=== PATIENT | male | born 1960 | race Caucasian/White ===

== ENCOUNTER 2019-07-22 23:33 | Emergency (ER) | payer OTHER ==
[~2019-07-22] VITALS: Ht 190.5 cm; Wt 97.5 kg
[2019-07-22 23:45] VITALS: BP_SYST 141
--- NOTE | 2019-07-22 23:45 | NUR ---
Patient to ER bed 4 to gown for evaluation. Side rails up. Report given to ANA LAURA LOPEZ.
--- NOTE | 2019-07-22 23:45 | NUR ---
ASSUMED CARE OF PT. REPORT RECIEVED.
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
--- NOTE | 2019-07-23 00:15 | NUR ---
ER Dr. THOMPSON at bedside examining patient.
--- NOTE | 2019-07-23 01:00 | NUR ---
XRAYS COMPLETE, AWAITING RESULTS.
--- NOTE | 2019-07-23 02:40 | NUR ---
PT AWAITING DISPOSITION. PT IS RESTING QUIETLY IN NO DISTRESS.
--- NOTE | 2019-07-23 03:15 | NUR ---
SLING APPLIED TO LEFT EXTREMITY TO STABILIZE.
[2019-07-23 03:20] VITALS: BP_SYST 136
--- NOTE | 2019-07-23 03:20 | NUR ---
Patient given written and verbal discharge instructions and verbalizes understanding. DR. JAY REED MD discussed with patient the results and treatment provided. Patient in stable condition. ID arm band removed. Rx of given. Patient educated on pain management and to follow up with PMD. Pain Scale 0/10. Opportunity for questions provided and answered. Medication side effect fact sheet provided.
== END 2019-07-23 03:20 | disposition home or self-care (01) ==
LOC: SED 23:33
DX: S43.492A Other sprain of left shoulder joint, initial encounter (principal); Z88.0 Allergy status to penicillin; V69.9XXA Occupant (driver) (passenger) of heavy transport vehicle injured in unspecified traffic accident, initial encounter; Y93.89 Activity, other specified; Y92.413 State road as the place of occurrence of the external cause; Y99.8 Other external cause status
CPT/HCPCS: 70450-TC; 72125-TC; 72170-TC; 73030; 73200-TC; 99285

== ENCOUNTER 2019-07-23 14:33 | Emergency (ER) | payer OTHER ==
[~2019-07-23] VITALS: Ht 190.5 cm; Wt 97.5 kg
[2019-07-23 14:33] VITALS: BP_SYST 137
[2019-07-23 16:03] VITALS: BP_SYST 137
== END 2019-07-23 16:02 | disposition home or self-care (01) ==
LOC: SED 14:33
DX: S42.121A Displaced fracture of acromial process, right shoulder, initial encounter for closed fracture (principal); S62.666A Nondisplaced fracture of distal phalanx of right little finger, initial encounter for closed fracture; Z88.0 Allergy status to penicillin; V49.69XA Unspecified car occupant injured in collision with other motor vehicles in traffic accident, initial encounter; Y93.89 Activity, other specified; Y92.413 State road as the place of occurrence of the external cause; Y99.8 Other external cause status
CPT/HCPCS: 73030; 73140-TC; 99284